=== PATIENT | male | born 1990 | race Caucasian/White ===

== ENCOUNTER 2017-10-16 19:48 | Emergency (ER) | payer SELFPAY ==
--- NOTE | 2017-10-16 20:03 | EDM.PDOC ---
ED HPI GENERAL MEDICAL PROBLEM - General Stated Complaint: RT SIDE TOOTHACHE Time Seen by Provider: 10/16/17 19:54 - History of Present Illness INITIAL COMMENTS - FREE TEXT/NARRATIVE: HISTORY AND PHYSICAL: History of present illness: Patient 26-year-old white male presents with a concern of dental pain he states he had this off and on for last 2 weeks since gotten progressively worse he is working on scheduling dental follow-up Review of systems: As per history of present illness and below otherwise all systems reviewed and negative. Past medical history: As per history of present illness and as reviewed below otherwise noncontributory. Surgical history: As per history of present illness and as reviewed below otherwise noncontributory. Social history: No reported history of drug or alcohol abuse. Family history: As per history of present illness and as reviewed below otherwise noncontributory. Physical exam: HEENT: Atraumatic, normocephalic, pupils reactive, negative for conjunctival pallor or scleral icterus, mucous membranes moist, throat clear, neck supple, nontender, trachea midline. Lungs: Clear to auscultation, breath sounds equal bilaterally, chest nontender. Heart: S1S2, regular, negative for clicks, rubs, or JVD. Abdomen: Soft, nondistended, nontender. Negative for masses or hepatosplenomegaly. Negative for costovertebral tenderness. Pelvis: Stable nontender. Genitourinary: Deferred. Rectal: Deferred. Extremities: Atraumatic, negative for cords or calf pain. Neurovascular unremarkable. Neuro: Awake, alert, oriented. Cranial nerves II through XII unremarkable. Cerebellum unremarkable. Motor and sensory unremarkable throughout. Exam nonfocal. Diagnostics: None Therapeutics: Toradol 60 mg IM hydrocodone 10 mg by mouth Impression: #1 dentalgia rule out dental abscess Definitive disposition and diagnosis as appropriate pending reevaluation and review of above. ED ROS GENERAL - Review of Systems Review Of Systems: ROS reveals no pertinent complaints other than HPI. ED EXAM, GENERAL - Physical Exam Exam: See Below (The dictation) Departure - Departure Time of Disposition: 20:04 Disposition: Home, Self-Care 01 Condition: Good Clinical Impression: Dentalgia - Discharge Information Referrals: PCP,None [Primary Care Provider] - Additional Instructions: The following information is given to patients seen in the emergency department who are being discharged to home. This information is to outline your options for follow-up care. We provide all patients seen in our emergency department with a follow-up referral. The need for follow-up, as well as the timing and circumstances, are variable depending upon the specifics of your emergency department visit. If you don't have a primary care physician on staff, we will provide you with a referral. We always advise you to contact your personal physician following an emergency department visit to inform them of the circumstance of the visit and for follow-up with them and/or the need for any referrals to a consulting specialist. The emergency department will also refer you to a specialist when appropriate. This referral assures that you have the opportunity for followup care with a specialist. All of these measure are taken in an effort to provide you with optimal care, which includes your followup. Under all circumstances we always encourage you to contact your private physician who remains a resource for coordinating your care. When calling for followup care, please make the office aware that this follow-up is from your recent emergency room visit. If for any reason you are refused follow-up, please contact the [facility] emergency department at and asked to speak to the emergency department charge nurse. Penicillin Ultram as prescribed follow-up dentist as discussed return as needed as discussed
[2017-10-16] MEDS ORDERED: Acetaminophen/HYDROcodone 325-10 MG Tab PO ONE (20:16)
[2017-10-16] MEDS ORDERED: Ketorolac 60 MG/2 ML SDV IM ONE (20:16)
== END 2017-10-16 20:49 | disposition home or self-care (01) ==
LOC: MW.ED 19:48
DX: K08.89 Other specified disorders of teeth and supporting structures (principal)
CPT/HCPCS: 96372; 99282; A9270; J1885; 99281

== ENCOUNTER 2017-10-17 10:15 | Emergency (ER) | payer SELFPAY ==
[2017-10-17] MEDS ORDERED: Benzocaine 20% Topical Spray UD MUCMEM ONE (10:44)
[2017-10-17] MEDS ORDERED: Lidocaine 2% Viscous Solution 15 ML Cup PO ONE (10:44)
--- NOTE | 2017-10-17 10:58 | EDM.PDOC ---
ED HPI GENERAL MEDICAL PROBLEM - General Chief Complaint: General Stated Complaint: toothache Time Seen by Provider: 10/17/17 10:28 Source of Information: Reports: Patient History Limitations: Reports: No Limitations - History of Present Illness INITIAL COMMENTS - FREE TEXT/NARRATIVE: HISTORY AND PHYSICAL: History of present illness: []Rob is a 26-year-old male here with complaint of dental pain. He states he has had the pain for the past 36 hours. He was seen in the ED last night and given a Toradol shot and sent home with tramadol and penicillin. She reports that the tramadol is not helping much with the pain. He is not scheduled with a dentist yet. He denies any fevers. Review of systems: As per history of present illness and below otherwise all systems reviewed and negative. Past medical history: As per history of present illness and as reviewed below otherwise noncontributory. Surgical history: As per history of present illness and as reviewed below otherwise noncontributory. Social history: No reported history of drug or alcohol abuse. Family history: As per history of present illness and as reviewed below otherwise noncontributory. Physical exam: HEENT: Erythema noted around teeth #31 and #32. Multiple dental caries. Atraumatic, normocephalic, pupils reactive, negative for conjunctival pallor or scleral icterus, mucous membranes moist, throat clear, neck supple, nontender, trachea midline. Lungs: Clear to auscultation, breath sounds equal bilaterally, chest nontender. Heart: S1S2, regular, negative for clicks, rubs, or JVD. Abdomen: Soft, nondistended, nontender. Negative for masses or hepatosplenomegaly. Negative for costovertebral tenderness. Pelvis: Stable nontender. Genitourinary: Deferred. Rectal: Deferred. Extremities: Atraumatic, negative for cords or calf pain. Neurovascular unremarkable. Neuro: Awake, alert, oriented. Cranial nerves II through XII unremarkable. Cerebellum unremarkable. Motor and sensory unremarkable throughout. Exam nonfocal. Diagnostics: [] Therapeutics: [Dental balls] Impression: [Dental abscess] Plan: [#1 continue using tramadol and dental balls as needed. Continue taking penicillin as prescribed #2 follow-up with your dentist as discussed #3 return to the ED as needed as discussed ] Definitive disposition and diagnosis as appropriate pending reevaluation and review of above. 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: Other (see below) (Penicillin and tramadol) Right Face Pain Score (Numeric/FACES): 9 - Related Data Allergies Allergy/AdvReac Type Severity Reaction Status Date / Time No Known Allergies Allergy Verified 10/17/17 10:28 Home Meds: Home Meds traMADol HCl [Tramadol HCl] 50 mg PO Q4HR PRN 10/17/17 [History] Past Medical History - Past Health History Medical/Surgical History: Denies Medical/Surgical History - Infectious Disease History Infectious Disease History: Reports: Chicken Pox Social & Family History - Family History Family Medical History: Noncontributory - Tobacco Use Smoking Status *Q: Current Every Day Smoker Years of Tobacco use: 13 Packs/Tins Daily: 1 - Caffeine Use Caffeine Use: Reports: Tea - Recreational Drug Use Recreational Drug Use: No ED ROS GENERAL - Review of Systems Review Of Systems: ROS reveals no pertinent complaints other than HPI. ED EXAM, GENERAL - Physical Exam Exam: See Below (See dictation) Course - Vital Signs Last Recorded V/S: Last Vital Signs Temp 36.3 C 10/17/17 10:23 Pulse 70 10/17/17 10:23 Resp 16 10/17/17 10:23 BP 159/82 H 10/17/17 10:23 Pulse Ox 99 10/17/17 10:23 - Orders/Labs/Meds Meds: Medications Discontinued Medications Generic Name Dose Route Start Last Admin Trade Name Abeba PRN Reason Stop Dose Admin Benzocaine 2 each 10/17/17 10:44 10/17/17 10:53 Hurricaine One 20% MUCMEM 10/17/17 10:45 2 each ONETIME ONE Administration Lidocaine HCl 15 ml 10/17/17 10:44 10/17/17 10:53 Xylocaine 2% Viscous PO 10/17/17 10:45 15 ml ONETIME ONE Administration Departure - Departure Time of Disposition: 11:19 Disposition: Home, Self-Care 01 Clinical Impression: Dentalgia, Dental abscess - Discharge Information Instructions: Dental Abscess, [id number] Referrals: PCP,None [Primary Care Provider] - Forms: ED Department Discharge Additional Instructions: The following information is given to patients seen in the emergency department who are being discharged to home. This information is to outline your options for follow-up care. We provide all patients seen in our emergency department with a follow-up referral. The need for follow-up, as well as the timing and circumstances, are variable depending upon the specifics of your emergency department visit. If you don't have a primary care physician on staff, we will provide you with a referral. We always advise you to contact your personal physician following an emergency department visit to inform them of the circumstance of the visit and for follow-up with them and/or the need for any referrals to a consulting specialist. The emergency department will also refer you to a specialist when appropriate. This referral assures that you have the opportunity for follow-up care with a specialist. All of these measure are taken in an effort to provide you with optimal care, which includes your follow-up. Under all circumstances we always encourage you to contact your private physician who remains a resource for coordinating your care. When calling for follow-up care, please make the office aware that this follow-up is from your recent emergency room visit. If for any reason you are refused follow-up, please contact the [facility] Emergency Department at and asked to speak to the emergency department charge nurse. [#1 continue using tramadol and dental balls as needed. Continue taking penicillin as prescribed #2 follow-up with your dentist as discussed #3 return to the ED as needed as discussed ]
== END 2017-10-17 11:22 | disposition home or self-care (01) ==
LOC: MW.ED 10:15
DX: K04.7 Periapical abscess without sinus (principal); F17.210 Nicotine dependence, cigarettes, uncomplicated
CPT/HCPCS: 99282; A9270

== ENCOUNTER 2017-10-19 10:11 | Emergency (ER) | payer SELFPAY ==
[2017-10-19] MEDS ORDERED: Lidocaine 2% Viscous Solution 15 ML Cup PO ONE ×2 (11:36→11:50)
[2017-10-19] MEDS ORDERED: Benzocaine 20% Topical Spray UD MUCMEM ONE ×2 (11:36→11:50)
--- NOTE | 2017-10-19 11:49 | EDM.PDOC ---
ED HPI GENERAL MEDICAL PROBLEM - General Chief Complaint: ENT Problem Stated Complaint: PT WOULD LIKE TO BE SEEN FOR HIS Rx Time Seen by Provider: 10/19/17 11:30 Source of Information: Reports: Patient History Limitations: Reports: No Limitations - History of Present Illness INITIAL COMMENTS - FREE TEXT/NARRATIVE: HISTORY AND PHYSICAL: History of present illness: She comes to the emergency room requesting a refill of dental balls and tramadol. He was seen in the emergency room on October 16 and for dental pain and Was prescribed amoxicillin, tramadol and dental balls. Overall his pain is improved significantly but he is running out of tramadol and dental balls. He has 4 tablets of tramadol left. He requests a refill of both. He is scheduled to see a dentist on ThursdayOctober 23 but doesn't feel that he can wait that long without medications. He has no other concerns or complaints at this time. Review of systems: As per history of present illness and below otherwise all systems reviewed and negative. Past medical history: As per history of present illness and as reviewed below otherwise noncontributory. Surgical history: As per history of present illness and as reviewed below otherwise noncontributory. Social history: No reported history of drug or alcohol abuse. Family history: As per history of present illness and as reviewed below otherwise noncontributory. Physical exam: Gen. well-developed well-nourished male in no acute distress. HEENT: Atraumatic, normocephalic. Tooth #31 shows cavities and decay. No gum swelling or erythema. No facial swelling noted. Tender with palpation over the tooth. Mucous membranes are pink and moist, throat clear. Lungs: Clear to auscultation, breath sounds equal bilaterally, chest nontender. Heart: S1S2, regular, negative for clicks, rubs, or JVD. Abdomen: Soft, nondistended, nontender. Negative for masses or hepatosplenomegaly. Negative for costovertebral tenderness. Pelvis: Stable nontender. Genitourinary: Deferred. Rectal: Deferred. Extremities: Atraumatic. Neurovascular unremarkable. Neuro: Awake, alert, oriented. Motor and sensory unremarkable throughout. Exam nonfocal. Therapeutics: [Dental balls] Impression: [Dental pain] Plan: [Rx written for tramadol 50 mg #20 sig one by mouth every 6 hours as needed for pain, dental balls 2 are given to patient. Urged follow-up with local dentist as he is scheduled. We reviewed that no more refills of tramadol will be provided to the ER. He is in agreement with today's plan.] Definitive disposition and diagnosis as appropriate pending reevaluation and review of above. - Related Data Allergies Allergy/AdvReac Type Severity Reaction Status Date / Time No Known Allergies Allergy Verified 10/19/17 10:31 Home Meds: Home Meds traMADol HCl [Tramadol HCl] 50 mg PO Q4HR PRN 10/17/17 [History] Penicilin G Potassium/D5W [Pfizerpen in D5W] 1 cap PO DAILY 10/19/17 [History] Past Medical History - Past Health History Medical/Surgical History: Denies Medical/Surgical History - Infectious Disease History Infectious Disease History: Reports: Chicken Pox Social & Family History - Family History Family Medical History: Noncontributory - Tobacco Use Smoking Status *Q: Current Every Day Smoker Years of Tobacco use: 13 Packs/Tins Daily: 1 - Caffeine Use Caffeine Use: Reports: Coffee, Tea - Recreational Drug Use Recreational Drug Use: No ED ROS ENT - Review of Systems Review Of Systems: ROS reveals no pertinent complaints other than HPI. ED EXAM, ENT - Physical Exam Exam: See Below Course - Vital Signs Last Recorded V/S: Last Vital Signs Temp 98.7 F 10/19/17 10:32 Pulse 82 10/19/17 10:32 Resp 18 10/19/17 10:32 BP 131/80 10/19/17 10:32 Pulse Ox 98 10/19/17 10:32 - Orders/Labs/Meds Meds: Medications Discontinued Medications Generic Name Dose Route Start Last Admin Trade Name Abeba PRN Reason Stop Dose Admin Benzocaine 2 each 10/19/17 11:36 Hurricaine One 20% MUCMEM 10/19/17 11:37 ONETIME ONE Lidocaine HCl 15 ml 10/19/17 11:36 Xylocaine 2% Viscous PO 10/19/17 11:37 ONETIME ONE Departure - Departure Time of Disposition: 11:50 Disposition: Home, Self-Care 01 Condition: Good Clinical Impression: Pain, dental - Discharge Information Referrals: PCP,None [Primary Care Provider] - Additional Instructions: The following information is given to patients seen in the emergency department who are being discharged to home. This information is to outline your options for follow-up care. We provide all patients seen in our emergency department with a follow-up referral. The need for follow-up, as well as the timing and circumstances, are variable depending upon the specifics of your emergency department visit. If you don't have a primary care physician on staff, we will provide you with a referral. We always advise you to contact your personal physician following an emergency department visit to inform them of the circumstance of the visit and for follow-up with them and/or the need for any referrals to a consulting specialist. The emergency department will also refer you to a specialist when appropriate. This referral assures that you have the opportunity for follow-up care with a specialist. All of these measure are taken in an effort to provide you with optimal care, which includes your follow-up. Under all circumstances we always encourage you to contact your private physician who remains a resource for coordinating your care. When calling for follow-up care, please make the office aware that this follow-up is from your recent emergency room visit. If for any reason you are refused follow-up, please contact the [facility] emergency department at and asked to speak to the emergency department charge nurse. [facility] [address] [place] [id number] Follow-up with her local primary care provider at the clinic listed above in 48- 72 hours. Take medications as prescribedDo not miss your dental appointment on Thursday. Return to ER as needed as discussed..
== END 2017-10-19 12:05 | disposition home or self-care (01) ==
LOC: MW.ED 10:11
DX: K08.89 Other specified disorders of teeth and supporting structures (principal); F17.210 Nicotine dependence, cigarettes, uncomplicated
CPT/HCPCS: 99282; A9270

== ENCOUNTER 2018-01-11 12:21 | Emergency (ER) | payer SELFPAY ==
[2018-01-11] MEDS ORDERED: Lidocaine 2% Viscous Solution 15 ML Cup PO ONE (12:33)
[2018-01-11] MEDS ORDERED: Benzocaine 20% Topical Spray UD MUCMEM ONE (12:33)
--- NOTE | 2018-01-11 12:36 | EDM.PDOC ---
ED HPI GENERAL MEDICAL PROBLEM - General Stated Complaint: TOOTH HURTS Time Seen by Provider: 01/11/18 12:35 Source of Information: Reports: Patient History Limitations: Reports: No Limitations - History of Present Illness INITIAL COMMENTS - FREE TEXT/NARRATIVE: HISTORY AND PHYSICAL: History of present illness: Patient is a 27-year-old male who presents to the emergency room today with complaints of dental pain. He has had a long-standing history of dentalgia over the past 4 months and has been seen in our emergency room 3 separate times for pain management and antibiotic use. He states he did see a dentist as a follow- up to his last visit; informed he would have to pay $2000 up front for a root canal. He does not have an appointment scheduled at this time and is requesting a refill on his tramadol and penicillin. He denies any fever, chills, chest pain, shortness of breath or cough. Denies any abdominal pain, nausea, vomiting, diarrhea or constipation. Review of systems: As per history of present illness and below otherwise all systems reviewed and negative. Past medical history: As per history of present illness and as reviewed below otherwise noncontributory. Surgical history: As per history of present illness and as reviewed below otherwise noncontributory. Social history: No reported history of drug or alcohol abuse. Family history: As per history of present illness and as reviewed below otherwise noncontributory. Physical exam: General: Well-developed and well-nourished 27-year-old male. Alert and oriented. Nontoxic appearing and in no acute distress. HEENT: Atraumatic, normocephalic, pupils equal and reactive bilaterally, negative for conjunctival pallor or scleral icterus, mucous membranes moist, poor dental health noted with decay. No erythema, drainage or soft tissue swelling noted. His throat is clear, TM normal bilateral, neck supple, nontender , trachea midline. No drooling or trismus noted. No meningeal signs Lungs: Clear to auscultation, breath sounds equal bilaterally, chest nontender. Heart: S1S2, regular rate and rhythm without overt murmur Abdomen: Soft, nondistended, nontender. Negative for masses or hepatosplenomegaly. Negative for costovertebral tenderness. Pelvis: Stable nontender. Genitourinary: Deferred. Rectal: Deferred. Skin: Intact, warm, dry. No lesions or rashes noted. Extremities: Atraumatic, negative for cords or calf pain. Neurovascular unremarkable. Neuro: Awake, alert, oriented. Cranial nerves II through XII unremarkable. Cerebellum unremarkable. Motor and sensory unremarkable throughout. Exam nonfocal. Notes: Did thoroughly review with patient the importance of follow-up with the dentist for definitive care. At this time I will not refill his tramadol. We'll give him topical dental balls, diclofenac, and Pen-VK. He is agreeable to plan of care. He denies any further questions at this time. Diagnostics: [] Therapeutics: Viscous Lidocane/hurricane spray Impression: Dentalgia Plan: 1. Please take your medications as prescribed. 2. As we discussed please follow-up with the dentist for definitive care. Return to the ED as needed and as discussed. Definitive disposition and diagnosis as appropriate pending reevaluation and review of above. Oral/Mouth Pain Score (Numeric/FACES): 7 - Related Data Allergies Allergy/AdvReac Type Severity Reaction Status Date / Time No Known Allergies Allergy Verified 01/11/18 12:28 Home Meds: Home Meds . [No Known Home Meds] 01/11/18 [History] Past Medical History - Past Health History Medical/Surgical History: Denies Medical/Surgical History - Infectious Disease History Infectious Disease History: Reports: Chicken Pox Social & Family History - Family History Family Medical History: Noncontributory - Caffeine Use Caffeine Use: Reports: Coffee, Tea ED ROS ENT - Review of Systems Review Of Systems: ROS reveals no pertinent complaints other than HPI. ED EXAM, ENT - Physical Exam Exam: See Below (See dictation) Course - Vital Signs Last Recorded V/S: Last Vital Signs Temp 97.5 F 01/11/18 12:33 Pulse 74 01/11/18 12:33 Resp 16 01/11/18 12:33 BP 147/89 H 01/11/18 12:33 Pulse Ox 96 01/11/18 12:33 - Orders/Labs/Meds Meds: Medications Discontinued Medications Generic Name Dose Route Start Last Admin Trade Name Freq PRN Reason Stop Dose Admin Benzocaine 2 each 01/11/18 12:33 Hurricaine One 20% MUCMEM 01/11/18 12:34 ONETIME ONE Lidocaine HCl 15 ml 01/11/18 12:33 Xylocaine 2% Viscous PO 01/11/18 12:34 ONETIME ONE Departure - Departure Time of Disposition: 12:39 Disposition: Home, Self-Care 01 Clinical Impression: Dentalgia - Discharge Information Referrals: PCP,None [Primary Care Provider] - Additional Instructions: The following information is given to patients seen in the emergency department who are being discharged to home. This information is to outline your options for follow-up care. We provide all patients seen in our emergency department with a follow-up referral. The need for follow-up, as well as the timing and circumstances, are variable depending upon the specifics of your emergency department visit. If you don't have a primary care physician on staff, we will provide you with a referral. We always advise you to contact your personal physician following an emergency department visit to inform them of the circumstance of the visit and for follow-up with them and/or the need for any referrals to a consulting specialist. The emergency department will also refer you to a specialist when appropriate. This referral assures that you have the opportunity for follow-up care with a specialist. All of these measure are taken in an effort to provide you with optimal care, which includes your follow-up. Under all circumstances we always encourage you to contact your private physician who remains a resource for coordinating your care. When calling for follow-up care, please make the office aware that this follow-up is from your recent emergency room visit. If for any reason you are refused follow-up, please contact the [facility] Emergency Department at and asked to speak to the emergency department charge nurse. [facility] [address] [place] [id number] 1. Please take your medications as prescribed. 2. As we discussed please follow-up with the dentist for definitive care. Return to the ED as needed and as discussed.
== END 2018-01-11 13:00 | disposition home or self-care (01) ==
LOC: MW.ED 12:21
DX: K08.89 Other specified disorders of teeth and supporting structures (principal)
CPT/HCPCS: 99282; A9270

== ENCOUNTER 2018-01-13 05:27 | Emergency (ER) | payer SELFPAY ==
[2018-01-13] MEDS ORDERED: Benzocaine 20% Topical Spray UD MUCMEM ONE (05:51)
[2018-01-13] MEDS ORDERED: Lidocaine 2% Viscous Solution 15 ML Cup PO ONE (05:51)
--- NOTE | 2018-01-13 05:56 | EDM.PDOC ---
ED HPI GENERAL MEDICAL PROBLEM - General Chief Complaint: General Stated Complaint: TOOTH PAIN Time Seen by Provider: 01/13/18 05:46 - History of Present Illness INITIAL COMMENTS - FREE TEXT/NARRATIVE: HISTORY AND PHYSICAL: History of present illness: The patient is a 27-year-old male who has been seen here several times in the past few months for dental pain and was here 2 days ago for same and says he is still having pain on the right lower molar area. The patient said he did see a dentist and that the dentist would like to not pull the tooth but do a root canal which is going to cause several thousand dollars and he needs to save the money for that and is scheduled tentatively for a month and a half from now. 2 days ago the patient received Pen-Vee K dental balls and diclofenac and nothing stronger and he says that he is out of the dental balls in the diclofenac is not working. In the past he has used tramadol. He has no fevers chills or throat pain with swallowing and only minimal facial swelling. He says the pain is now going to his ear. Patient has no other systemic complaints Review of systems: As per history of present illness and below otherwise all systems reviewed and negative. Past medical history: As per history of present illness and as reviewed below otherwise noncontributory. Surgical history: As per history of present illness and as reviewed below otherwise noncontributory. Social history: No reported history of drug or alcohol abuse. Family history: As per history of present illness and as reviewed below otherwise noncontributory. Physical exam: General: Well-developed well-nourished man who is nontoxic and vital signs are noted by me HEENT: Atraumatic, normocephalic, pupils reactive, negative for conjunctival pallor or scleral icterus, mucous membranes moist, throat clear, neck supple, nontender, trachea midline. There is some shoddy anterior cervical adenopathy but no nuchal rigidity. There are several areas of dental disease more on the left side and at the right lower molar area the patient is indicating as his site of pain and there is no gum swelling no overt dental Caries but tenderness with palpation. Lungs: Clear to auscultation, breath sounds equal bilaterally, chest nontender. Heart: S1S2, regular in rhythm no overt murmurs Abdomen: Soft, nondistended, nontender. NABS Pelvis: Deferred Genitourinary: Deferred. Rectal: Deferred. Extremities: Atraumatic, full range of motion without defects or deficits. Neurovascular unremarkable. Neuro: Awake, alert, oriented. Cranial nerves II through XII unremarkable. Cerebellum unremarkable. Motor and sensory unremarkable throughout. Exam nonfocal. Diagnostics: [] Therapeutics: Dental balls Impression: Dental pain Definitive disposition and diagnosis as appropriate pending reevaluation and review of above. Right Upper Oral/Mouth Pain Score (Numeric/FACES): 8 - Related Data Allergies Allergy/AdvReac Type Severity Reaction Status Date / Time No Known Allergies Allergy Verified 01/13/18 05:39 Home Meds: Home Meds Penicillin V Potassium 500 mg PO TID 01/13/18 [History] Past Medical History - Past Health History Medical/Surgical History: Denies Medical/Surgical History HEENT History: Reports: None Cardiovascular History: Reports: None Respiratory History: Reports: None Gastrointestinal History: Reports: None Genitourinary History: Reports: None Musculoskeletal History: Reports: None Neurological History: Reports: None Psychiatric History: Reports: None Endocrine/Metabolic History: Reports: None Hematologic History: Reports: None Immunologic History: Reports: None Oncologic (Cancer) History: Reports: None Dermatologic History: Reports: None - Infectious Disease History Infectious Disease History: Reports: None - Past Surgical History Head Surgeries/Procedures: Reports: None Male Surgical History: Reports: None Social & Family History - Family History Family Medical History: Noncontributory - Tobacco Use Smoking Status *Q: Current Every Day Smoker Years of Tobacco use: 14 Packs/Tins Daily: 3 - Caffeine Use Caffeine Use: Reports: None - Recreational Drug Use Recreational Drug Use: No ED ROS GENERAL - Review of Systems Review Of Systems: ROS reveals no pertinent complaints other than HPI. ED EXAM, GENERAL - Physical Exam Exam: See Below (See dictation) Course - Vital Signs Last Recorded V/S: Last Vital Signs Temp 35.8 C 01/13/18 05:37 Pulse 65 01/13/18 05:37 Resp 18 01/13/18 05:37 BP 143/95 H 01/13/18 05:37 Pulse Ox 98 01/13/18 05:37 - Orders/Labs/Meds Orders: Active Orders 24 hr Category Date Time Status Benzocaine [Hurricaine One 20%] Med 01/13/18 05:51 Once 2 each MUCMEM ONETIME ONE Lidocaine 2% [Xylocaine 2% Viscous] Med 01/13/18 05:51 Once 15 ml PO ONETIME ONE Medication Orders Benzocaine (Hurricaine One 20%) 2 each MUCMEM ONETIME ONE Stop: 01/13/18 05:52 Lidocaine HCl (Xylocaine 2% Viscous) 15 ml PO ONETIME ONE Stop: 01/13/18 05:52 Meds: Medications Generic Name Dose Route Start Last Admin Trade Name Abeba PRN Reason Stop Dose Admin Benzocaine 2 each 01/13/18 05:51 Hurricaine One 20% MUCMEM 01/13/18 05:52 ONETIME ONE Lidocaine HCl 15 ml 01/13/18 05:51 Xylocaine 2% Viscous PO 01/13/18 05:52 ONETIME ONE Departure - Departure Time of Disposition: 05:56 Disposition: Home, Self-Care 01 Condition: Good Clinical Impression: Pain, dental - Discharge Information Referrals: PCP,None [Primary Care Provider] - Additional Instructions: The following information is given to patients seen in the emergency department who are being discharged to home. This information is to outline your options for follow-up care. We provide all patients seen in our emergency department with a follow-up referral. The need for follow-up, as well as the timing and circumstances, are variable depending upon the specifics of your emergency department visit. If you don't have a primary care physician on staff, we will provide you with a referral. We always advise you to contact your personal physician following an emergency department visit to inform them of the circumstance of the visit and for follow-up with them and/or the need for any referrals to a consulting specialist. The emergency department will also refer you to a specialist when appropriate. This referral assures that you have the opportunity for followup care with a specialist. All of these measure are taken in an effort to provide you with optimal care, which includes your followup. Under all circumstances we always encourage you to contact your private physician who remains a resource for coordinating your care. When calling for followup care, please make the office aware that this follow-up is from your recent emergency room visit. If for any reason you are refused follow-up, please contact the [facility] emergency department at and ask to speak to the emergency department charge nurse. [facility] Primary care- Internal [place] [address] Use ice to face for swelling and use the dental balls you have been given today as directed and needed. Continue to use her diclofenac and [id number] Tylenol during the day and only take the tramadol you have been given at nighttime or when you're at home. Do not take and drive a car or operate machinery. Please make sure to schedule your follow-up appointment with the dentist for definitive care and treatment. Return to ER as needed and as discussed - My Orders Last 24 Hours: My Active Orders 01/13/18 05:51 Benzocaine [Hurricaine One 20%] 2 each MUCMEM ONETIME ONE Lidocaine 2% [Xylocaine 2% Viscous] 15 ml PO ONETIME ONE - Assessment/Plan Last 24 Hours: My Active Orders 01/13/18 05:51 Benzocaine [Hurricaine One 20%] 2 each MUCMEM ONETIME ONE Lidocaine 2% [Xylocaine 2% Viscous] 15 ml PO ONETIME ONE
== END 2018-01-13 06:10 | disposition home or self-care (01) ==
LOC: MW.ED 05:27
DX: K08.89 Other specified disorders of teeth and supporting structures (principal); F17.210 Nicotine dependence, cigarettes, uncomplicated
CPT/HCPCS: 99282; A9270

== ENCOUNTER 2018-03-24 04:16 | Emergency (ER) | payer SELFPAY ==
[2018-03-24] MEDS ORDERED: Benzocaine 20% Topical Spray UD MUCMEM ONE (05:23)
[2018-03-24] MEDS ORDERED: Lidocaine 2% Jelly 30 ML Tube MUCMEM ONE (05:26)
[2018-03-24] MEDS ORDERED: Lidocaine 2% Viscous Solution 15 ML Cup PO ONE (05:27)
[2018-03-24] MEDS ORDERED: Lidocaine 2% Jelly 30 ML Tube MUCMEM SCH (05:30)
--- NOTE | 2018-03-24 05:30 | EDM.PDOC ---
ED HPI GENERAL MEDICAL PROBLEM - General Chief Complaint: ENT Problem Stated Complaint: TOOTH PAIN Time Seen by Provider: 03/24/18 05:24 - History of Present Illness INITIAL COMMENTS - FREE TEXT/NARRATIVE: HISTORY AND PHYSICAL: History of present illness: Patient's 27-year-old male presents with a concern of dentalgia this is his seventh visit to the ER this year for dental pain he states is currently on antibiotics and is scheduled for root canal but no fever chills nausea vomiting or other complaints Review of systems: As per history of present illness and below otherwise all systems reviewed and negative. Past medical history: As per history of present illness and as reviewed below otherwise noncontributory. Surgical history: As per history of present illness and as reviewed below otherwise noncontributory. Social history: No reported history of drug or alcohol abuse. Family history: As per history of present illness and as reviewed below otherwise noncontributory. Physical exam: HEENT: Atraumatic, normocephalic, pupils reactive, negative for conjunctival pallor or scleral icterus, mucous membranes moist, throat clear, neck supple, nontender, trachea midline. No facial swelling noted some mild gingival edema in the region of the right upper molar Lungs: Clear to auscultation, breath sounds equal bilaterally, chest nontender. Heart: S1S2, regular, negative for clicks, rubs, or JVD. Abdomen: Soft, nondistended, nontender. Negative for masses or hepatosplenomegaly. Negative for costovertebral tenderness. Pelvis: Stable nontender. Genitourinary: Deferred. Rectal: Deferred. Extremities: Atraumatic, negative for cords or calf pain. Neurovascular unremarkable. Neuro: Awake, alert, oriented. Cranial nerves II through XII unremarkable. Cerebellum unremarkable. Motor and sensory unremarkable throughout. Exam nonfocal. Diagnostics: None Therapeutics: Dental balls Impression: #1 dentalgia Definitive disposition and diagnosis as appropriate pending reevaluation and review of above. dental pain Pain Score (Numeric/FACES): 8 - Related Data Allergies Allergy/AdvReac Type Severity Reaction Status Date / Time No Known Allergies Allergy Verified 03/24/18 04:23 Home Meds: Home Meds Cephalexin [Keflex] 500 mg PO Q6HR 03/24/18 [History] Past Medical History - Past Health History Medical/Surgical History: Denies Medical/Surgical History HEENT History: Reports: None Cardiovascular History: Reports: None Respiratory History: Reports: None Gastrointestinal History: Reports: None Genitourinary History: Reports: None Musculoskeletal History: Reports: None Neurological History: Reports: None Psychiatric History: Reports: None Endocrine/Metabolic History: Reports: None Hematologic History: Reports: None Immunologic History: Reports: None Oncologic (Cancer) History: Reports: None Dermatologic History: Reports: None - Infectious Disease History Infectious Disease History: Reports: None - Past Surgical History Head Surgeries/Procedures: Reports: None Male Surgical History: Reports: None Social & Family History - Family History Family Medical History: Noncontributory - Tobacco Use Smoking Status *Q: Current Every Day Smoker Years of Tobacco use: 13 Packs/Tins Daily: 2 - Caffeine Use Caffeine Use: Reports: Soda - Recreational Drug Use Recreational Drug Use: No ED ROS GENERAL - Review of Systems Review Of Systems: ROS reveals no pertinent complaints other than HPI. ED EXAM, GENERAL - Physical Exam Exam: See Below (See dictation) Course - Vital Signs Text/Narrative:: I discussed with patient the limitations in emergency department for dental pain and his 7 visits inclusive of this one and the need for a more close relationship with her dentist to better manage his general dental care and pain resulting in such frequent ER visits Last Recorded V/S: Last Vital Signs Temp 36.4 C 03/24/18 04:25 Pulse 77 03/24/18 04:25 Resp 18 03/24/18 04:25 BP 132/93 H 03/24/18 04:25 Pulse Ox 98 03/24/18 04:25 - Orders/Labs/Meds Orders: Active Orders 24 hr Category Date Time Status Lidocaine 2% [Xylocaine 2% Jelly] Med 03/24/18 05:30 Active 15 ml MUCMEM STAT Medication Orders Lidocaine HCl (Xylocaine 2% Jelly) 15 ml MUCMEM STAT RISHABH Meds: Medications Generic Name Dose Route Start Last Admin Trade Name Freq PRN Reason Stop Dose Admin Lidocaine HCl 15 ml 03/24/18 05:30 Xylocaine 2% Jelly MUCMEM STAT RISHABH Discontinued Medications Generic Name Dose Route Start Last Admin Trade Name Freq PRN Reason Stop Dose Admin Benzocaine 2 each 03/24/18 05:23 Hurricaine One 20% MUCMEM 03/24/18 05:24 ONETIME ONE Departure - Departure Time of Disposition: 05:29 Disposition: Home, Self-Care 01 Condition: Good Clinical Impression: Dentalgia - Discharge Information *PRESCRIPTION DRUG MONITORING PROGRAM REVIEWED*: Not Applicable *COPY OF PRESCRIPTION DRUG MONITORING REPORT IN PATIENT DARLEEN: Not Applicable Referrals: PCP,None [Primary Care Provider] - Additional Instructions: The following information is given to patients seen in the emergency department who are being discharged to home. This information is to outline your options for follow-up care. We provide all patients seen in our emergency department with a follow-up referral. The need for follow-up, as well as the timing and circumstances, are variable depending upon the specifics of your emergency department visit. If you don't have a primary care physician on staff, we will provide you with a referral. We always advise you to contact your personal physician following an emergency department visit to inform them of the circumstance of the visit and for follow-up with them and/or the need for any referrals to a consulting specialist. The emergency department will also refer you to a specialist when appropriate. This referral assures that you have the opportunity for followup care with a specialist. All of these measure are taken in an effort to provide you with optimal care, which includes your followup. Under all circumstances we always encourage you to contact your private physician who remains a resource for coordinating your care. When calling for followup care, please make the office aware that this follow-up is from your recent emergency room visit. If for any reason you are refused follow-up, please contact the [facility] emergency department at and asked to speak to the emergency department charge nurse. Follow-up dentist continue antibiotics dental balls as directed return as needed as discussed - My Orders Last 24 Hours: My Active Orders 03/24/18 05:30 Lidocaine 2% [Xylocaine 2% Jelly] 15 ml MUCMEM STAT - Assessment/Plan Last 24 Hours: My Active Orders 03/24/18 05:30 Lidocaine 2% [Xylocaine 2% Jelly] 15 ml MUCMEM STAT
[2018-03-24] MEDS ORDERED: Lidocaine 2% Viscous Solution 15 ML Cup ONE (05:31)
== END 2018-03-24 05:45 | disposition home or self-care (01) ==
LOC: MW.ED 04:16
DX: K08.89 Other specified disorders of teeth and supporting structures (principal); F17.210 Nicotine dependence, cigarettes, uncomplicated
CPT/HCPCS: 99282; A9270

== ENCOUNTER 2020-11-06 22:27 | Emergency (ER) | payer BC ==
[2020-11-06] MEDS ORDERED: Sodium Chloride 0.9% 10 ML Syringe FLUSH PRN (22:45)
[2020-11-06] MEDS ORDERED: Sodium Chloride 0.9% 2.5 ML Syringe FLUSH PRN (22:45)
--- NOTE | 2020-11-06 22:49 | EDM.PDOC ---
ED HPI GENERAL MEDICAL PROBLEM - General Chief Complaint: Behavioral/Psych Stated Complaint: SUCIDAL IDEATION Time Seen by Provider: 11/06/20 22:45 - History of Present Illness INITIAL COMMENTS - FREE TEXT/NARRATIVE: History of present illness: [] The patient claims he suffers chronic depression. He is never had a suicide attempt. Tonight at 10:00 he took 20 each of Klonopin sertraline and Adderall. He is evasive when asked if he wanted to kill himself. He said someone else called 911 because uncertain that he might . He is at least agreeable to the fact that he does not seem to care. Review of systems: As per history of present illness and below otherwise all systems reviewed and negative. Past medical history: As per history of present illness and as reviewed below otherwise noncontributory. Surgical history: As per history of present illness and as reviewed below otherwise noncontributory. Social history: No reported history of drug or alcohol abuse. Family history: As per history of present illness and as reviewed below otherwise noncontributory. Physical exam: Constitutional - well developed, well-nourished and in no acute distress HEENT - normocephalic, no evidence of trauma - external nose and mouth normal - no mass in neck and no JVD - mucosae moist EYES - full EOM, PERRL, no icterus - no evidence of inflammation, injection, or drainage Respiratory - no respiratory distress, equal bilateral expansion, lungs clear to auscultation and no abnormal lung sounds Cardiovascular - Regular Rhythm with S1 and S2 appreciated and no murmur, gallop or rub. GI - abdomen soft without distension or organomegaly - normal bowel sounds - no guard or rebound Musculoskeletal no gross deformity of long bones or joints - no tenderness, swelling or edema Neurologic - Alert and oriented times four - CN II-XII grossly intact - motor sensory and coordination symmetrically normal Psychiatric -depressed mood and affect with normal thought content Hematologic - No petechiae or purpura - mucosa appropriate color and sclera not pale - normal nail bed color and refill Integument - no rash or evidence of trauma - normal turgor Diagnostics: [] Therapeutics: [] Impression: [] Plan: [] We contacted poison control and got this recommendation: Watch for seizures with sertraline, hypertension, restart rate. The diazepam would counteract the same effects but may cause excessive sedation. Plan to watch 8 hours repeat EKG. Definitive disposition and diagnosis as appropriate pending reevaluation and review of above. - Related Data Allergies Allergy/AdvReac Type Severity Reaction Status Date / Time No Known Allergies Allergy Verified 11/06/20 22:44 Home Meds: Home Meds Amphetamine/Dextroamphetamine [Adderall XR] 30 mg PO DAILY 11/06/20 [History] Sertraline HCl 50 mg PO DAILY 11/06/20 [History] clonazePAM [Clonazepam] 0.5 mg PO DAILY 11/06/20 [History] Past Medical History - Past Health History Medical/Surgical History: Denies Medical/Surgical History HEENT History: Reports: None Cardiovascular History: Reports: None Respiratory History: Reports: None Gastrointestinal History: Reports: None Genitourinary History: Reports: None Musculoskeletal History: Reports: None Neurological History: Reports: None Psychiatric History: Reports: None Endocrine/Metabolic History: Reports: None Hematologic History: Reports: None Immunologic History: Reports: None Oncologic (Cancer) History: Reports: None Dermatologic History: Reports: None - Infectious Disease History Infectious Disease History: Reports: None - Past Surgical History Head Surgeries/Procedures: Reports: None Male Surgical History: Reports: None Social & Family History - Family History Family Medical History: No Pertinent Family History - Caffeine Use Caffeine Use: Reports: Soda ED ROS GENERAL - Review of Systems Review Of Systems: Comprehensive ROS is negative, except as noted in HPI. ED EXAM, GENERAL - Physical Exam Exam: See Below Free Text/Narrative:: My physical exam is in the HPI #1 Interpretation EKG Interpretation Comments: KG at 11:12 PM sinus rhythm with a heart rate 85 axis of 57 and QT 39. Normal QRS normal ST and T. No prior for comparison. Impression normal #2 Interpretation EKG Interpretation Comments: EG 5:45 AM sinus rhythm heart rate 92 [place] 46 QRS duration 94 compared to 11:12 PM on 11/08/2020 no significant difference impression no change in rhythm or both. Course - Vital Signs Text/Narrative:: Oh 2:40 AM at midnight 1:00 2:00 and now the patient has been conversational and in no acute distress. His condition is stable. 5:01 AM patient stable wide-awake and anxious. He says he is a little nervous h e might lose control of himself because of frustration. He does not think he will but he also wants a cigarette. Patient accepted intravenous benzodiazepines and nicotine patches and alternative At 6 AM I discussed the case with Cristina Guy and they do not have a psych bed. I transferred the patient after discussion with Dr. Velasquez at [facility].. I transferred the patient to Dr. Velasquez after discussion with same. She is a psychiatrist at [facility]. Last Recorded V/S: Last Vital Signs Temp 36.9 C 11/07/20 12:50 Pulse 107 H 11/07/20 12:50 Resp 20 11/07/20 12:50 BP 139/83 11/07/20 12:50 Pulse Ox 97 11/07/20 12:50 - Orders/Labs/Meds Orders: Active Orders 24 hr Category Date Time Status Saline Lock Insert [OM.PC] Stat Oth 11/06/20 22:45 Ordered Labs: Laboratory Tests 11/06/20 11/06/20 11/06/20 Range/Units 23:00 23:00 23:00 WBC 10.76 (4.0-11.0) K/uL RBC 5.75 (4.50-5.90) M/uL Hgb 16.4 (13.0-17.0) g/dL Hct 49.1 (38.0-50.0) % MCV 85.4 (80.0-98.0) fL MCH 28.5 (27.0-32.0) pg MCHC 33.4 (31.0-37.0) g/dL RDW Std Deviation 46.9 (28.0-62.0) fl RDW Coeff of Myesha 15 (11.0-15.0) % Plt Count 238 (150-400) K/uL MPV 10.60 (7.40-12.00) fL Neut % (Auto) 52.4 (48.0-80.0) % Lymph % (Auto) 35.1 (16.0-40.0) % Lawrence % (Auto) 8.2 (0.0-15.0) % Eos % (Auto) 3.6 (0.0-7.0) % Baso % (Auto) 0.7 (0.0-1.5) % Neut # (Auto) 5.6 (1.4-5.7) K/uL Lymph # (Auto) 3.8 H (0.6-2.4) K/uL Lawrence # (Auto) 0.9 H (0.0-0.8) K/uL Eos # (Auto) 0.4 (0.0-0.7) K/uL Baso # (Auto) 0.1 (0.0-0.1) K/uL Nucleated RBC % 0.0 /100WBC Nucleated RBCs # 0 K/uL Sodium 142 (136-148) mmol/L Potassium 3.6 (3.5-5.1) mmol/L Chloride 101 (98-107) mmol/L Carbon Dioxide 30.1 (21.0-32.0) mmol/L BUN 7 (7.0-18.0) mg/dL Creatinine 1.1 (0.8-1.3) mg/dL Est Cr Clr Drug Dosing 119.46 mL/min Estimated GFR (MDRD) > 60.0 ml/min Glucose 78 (74-106) mg/dL POC Glucose (70-99) mg/dL Calcium 8.9 (8.5-10.1) mg/dL Magnesium (1.8-2.4) mg/dL Total Bilirubin 0.3 (0.2-1.0) mg/dL AST 24 (15-37) IU/L ALT 35 (14-63) IU/L Alkaline Phosphatase 98 (46-116) U/L Total Protein 8.3 H (6.4-8.2) g/dL Albumin 4.2 (3.4-5.0) g/dL Globulin 4.1 H (2.6-4.0) g/dL Albumin/Globulin Ratio 1.0 (0.9-1.6) Salicylates 3.9 (0-20) mg/dL Urine Opiates Screen (NEGATIVE) Ur Oxycodone Screen (NEGATIVE) Urine Methadone Screen (NEGATIVE) Acetaminophen <2.0 ug/mL Ur Barbiturates Screen (NEGATIVE) Ur Phencyclidine Scrn (NEGATIVE) Ur Amphetamine Screen (NEGATIVE) U Methamphetamines Scrn (NEGATIVE) U Benzodiazepines Scrn (NEGATIVE) U Cocaine Metab Screen (NEGATIVE) U Marijuana (THC) Screen (NEGATIVE) Ethyl Alcohol 186 mg/dL SARS-CoV-2 RNA (GARRICK) (NEGATIVE) 11/06/20 11/06/2021 Range/Units 23:00 23:05 00:20 WBC (4.0-11.0) K/uL RBC (4.50-5.90) M/uL Hgb (13.0-17.0) g/dL Hct (38.0-50.0) % MCV (80.0-98.0) fL MCH (27.0-32.0) pg MCHC (31.0-37.0) g/dL RDW Std Deviation (28.0-62.0) fl RDW Coeff of Myesha (11.0-15.0) % Plt Count (150-400) K/uL MPV (7.40-12.00) fL Neut % (Auto) (48.0-80.0) % Lymph % (Auto) (16.0-40.0) % Lawrence % (Auto) (0.0-15.0) % Eos % (Auto) (0.0-7.0) % Baso % (Auto) (0.0-1.5) % Neut # (Auto) (1.4-5.7) K/uL Lymph # (Auto) (0.6-2.4) K/uL Lawrence # (Auto) (0.0-0.8) K/uL Eos # (Auto) (0.0-0.7) K/uL Baso # (Auto) (0.0-0.1) K/uL Nucleated RBC % /100WBC Nucleated RBCs # K/uL Sodium (136-148) mmol/L Potassium (3.5-5.1) mmol/L Chloride (98-107) mmol/L Carbon Dioxide (21.0-32.0) mmol/L BUN (7.0-18.0) mg/dL Creatinine (0.8-1.3) mg/dL Est Cr Clr Drug Dosing mL/min Estimated GFR (MDRD) ml/min Glucose (74-106) mg/dL POC Glucose 72 (70-99) mg/dL Calcium (8.5-10.1) mg/dL Magnesium 2.3 (1.8-2.4) mg/dL Total Bilirubin (0.2-1.0) mg/dL AST (15-37) IU/L ALT (14-63) IU/L Alkaline Phosphatase (46-116) U/L Total Protein (6.4-8.2) g/dL Albumin (3.4-5.0) g/dL Globulin (2.6-4.0) g/dL Albumin/Globulin Ratio (0.9-1.6) Salicylates (0-20) mg/dL Urine Opiates Screen NEGATIVE (NEGATIVE) Ur Oxycodone Screen NEGATIVE (NEGATIVE) Urine Methadone Screen NEGATIVE (NEGATIVE) Acetaminophen ug/mL Ur Barbiturates Screen NEGATIVE (NEGATIVE) Ur Phencyclidine Scrn NEGATIVE (NEGATIVE) Ur Amphetamine Screen NEGATIVE (NEGATIVE) U Methamphetamines Scrn NEGATIVE (NEGATIVE) U Benzodiazepines Scrn NEGATIVE (NEGATIVE) U Cocaine Metab Screen NEGATIVE (NEGATIVE) U Marijuana (THC) Screen NEGATIVE (NEGATIVE) Ethyl Alcohol mg/dL SARS-CoV-2 RNA (GARRICK) (NEGATIVE) 11/07/20 11/07/20 Range/Units 02:50 03:55 WBC (4.0-11.0) K/uL RBC (4.50-5.90) M/uL Hgb (13.0-17.0) g/dL Hct (38.0-50.0) % MCV (80.0-98.0) fL MCH (27.0-32.0) pg MCHC (31.0-37.0) g/dL RDW Std Deviation (28.0-62.0) fl RDW Coeff of Myesha (11.0-15.0) % Plt Count (150-400) K/uL MPV (7.40-12.00) fL Neut % (Auto) (48.0-80.0) % Lymph % (Auto) (16.0-40.0) % Lawrence % (Auto) (0.0-15.0) % Eos % (Auto) (0.0-7.0) % Baso % (Auto) (0.0-1.5) % Neut # (Auto) (1.4-5.7) K/uL Lymph # (Auto) (0.6-2.4) K/uL Lawrence # (Auto) (0.0-0.8) K/uL Eos # (Auto) (0.0-0.7) K/uL Baso # (Auto) (0.0-0.1) K/uL Nucleated RBC % /100WBC Nucleated RBCs # K/uL Sodium (136-148) mmol/L Potassium (3.5-5.1) mmol/L Chloride (98-107) mmol/L Carbon Dioxide (21.0-32.0) mmol/L BUN (7.0-18.0) mg/dL Creatinine (0.8-1.3) mg/dL Est Cr Clr Drug Dosing mL/min Estimated GFR (MDRD) ml/min Glucose (74-106) mg/dL POC Glucose (70-99) mg/dL Calcium (8.5-10.1) mg/dL Magnesium (1.8-2.4) mg/dL Total Bilirubin (0.2-1.0) mg/dL AST (15-37) IU/L ALT (14-63) IU/L Alkaline Phosphatase (46-116) U/L Total Protein (6.4-8.2) g/dL Albumin (3.4-5.0) g/dL Globulin (2.6-4.0) g/dL Albumin/Globulin Ratio (0.9-1.6) Salicylates 3.6 (0-20) mg/dL Urine Opiates Screen (NEGATIVE) Ur Oxycodone Screen (NEGATIVE) Urine Methadone Screen (NEGATIVE) Acetaminophen ug/mL Ur Barbiturates Screen (NEGATIVE) Ur Phencyclidine Scrn (NEGATIVE) Ur Amphetamine Screen (NEGATIVE) U Methamphetamines Scrn (NEGATIVE) U Benzodiazepines Scrn (NEGATIVE) U Cocaine Metab Screen (NEGATIVE) U Marijuana (THC) Screen (NEGATIVE) Ethyl Alcohol mg/dL SARS-CoV-2 RNA (GARRICK) NEGATIVE (NEGATIVE) Meds: Medications Discontinued Medications Generic Name Dose Route Start Last Admin Trade Name Freq PRN Reason Stop Dose Admin Albuterol 8 gm 11/07/20 06:00 Albuterol Hfa 18 Gm Inhaler INH QID RISHABH Albuterol 8 gm 11/07/20 03:45 11/07/20 12:28 Albuterol Hfa 18 Gm Inhaler INH 8 gm Q2H PRN Administration Shortness of Breath Albuterol Confirm 11/07/20 03:43 11/07/20 03:48 Albuterol 8 Gm Inhaler Administered 11/07/20 03:44 2 puff Dose Administration 8 gm INH .STK-MED ONE Diphenhydramine HCl 50 mg 11/07/20 05:00 11/07/20 05:10 Diphenhydramine 50 Mg/Ml Sdv IVPUSH 11/07/20 05:01 50 mg ONETIME ONE Administration Sodium Chloride 1,000 mls @ 999 mls/hr 11/06/20 23:44 11/07/20 00:24 Normal Saline IV 11/07/20 00:44 999 mls/hr .Bolus ONE Administration Lorazepam 2 mg 11/07/20 05:00 11/07/20 05:10 Lorazepam 2 Mg/Ml Sdv IVPUSH 11/07/20 05:01 2 mg ONETIME ONE Administration Nicotine 21 mg 11/07/20 05:00 11/07/20 05:10 Nicotine 21 Mg/24 Hr Patch TRDERM 11/07/20 05:01 21 mg ONETIME ONE Administration Sodium Chloride 10 ml 11/06/20 22:45 11/07/20 00:24 Sodium Chloride 0.9% 10 Ml Syringe FLUSH 10 ml ASDIRECTED PRN Administration Keep Vein Open Sodium Chloride 2.5 ml 11/06/20 22:45 11/07/20 00:24 Sodium Chloride 0.9% 2.5 Ml Syringe FLUSH 2.5 ml ASDIRECTED PRN Administration Keep Vein Open Departure - Departure Time of Disposition: 12:54 Disposition: DC/Tfer to Psych Hosp/Unit 65 Condition: Good Clinical Impression: Depressive disorder - Discharge Information Referrals: Salvatore Jonh MD [Primary Care Provider] - Forms: ED Department Discharge Sepsis Event Note (ED) - Focused Exam Vital Signs: Vital Signs Temp Pulse Resp BP Pulse Ox 11/07/20 12:50 36.9 C 107 H 20 139/83 97 11/07/20 12:20 36.6 C 95 20 149/84 H 99 11/07/20 11:00 96 16 157/76 H 98 11/07/20 10:00 101 H 18 144/90 H 99 11/07/20 09:00 91 20 125/83 99 11/07/20 08:00 100 20 133/79 98 - My Orders Last 24 Hours: My Active Orders 11/06/20 22:45 Saline Lock Insert [OM.PC] Stat - Assessment/Plan Last 24 Hours: My Active Orders 11/06/20 22:45 Saline Lock Insert [OM.PC] Stat
[2020-11-06] MEDS ORDERED: Sodium Chloride 0.9% 1,000 ML IV ONE (23:44)
[2020-11-06 23:55] LABS: BLOOD UREA NITROGEN,BUN 7 mg/dL (7.0-18.0); CARBON DIOXIDE,CO2 30.1 mmol/L (21.0-32.0); CHLORIDE,CL 101 mmol/L (98-107); GLUCOSE RANDOM 78 mg/dL (74-106); POTASSIUM,K 3.6 mmol/L (3.5-5.1); SODIUM,NA 142 mmol/L (136-148)
[2020-11-07] MEDS ORDERED: Albuterol 8 GM Inhaler INH ONE (03:43)
[2020-11-07] MEDS: Albuterol HFA 18 Gm Inhaler INH PRN ×2 (03:46→12:28)
[2020-11-07] MEDS ORDERED: LORazepam 2 MG/ML SDV IVPUSH ONE (05:00)
[2020-11-07] MEDS ORDERED: Nicotine 21 MG/24 Hr Patch TRDERM ONE (05:00)
[2020-11-07] MEDS ORDERED: diphenhydrAMINE 50 MG/ML SDV IVPUSH ONE (05:00)
[2020-11-07] MEDS ORDERED: Albuterol HFA 18 Gm Inhaler INH SCH (06:00)
== END 2020-11-07 12:54 ==
LOC: MW.ED 22:27
DX: F32.9 Major depressive disorder, single episode, unspecified (principal); Z20.822 Contact with and (suspected) exposure to COVID-19
CPT/HCPCS: 36415; 80053; 80143; 80179; 80305; 80307; 82947; 83735; 85025; 87635; 93005; 96374; 96375; 99285; A9270; J1200; J2060; J7030; 93010; 99284; J3535-GY; U0002

== ENCOUNTER 2020-11-25 04:39 | Emergency (ER) | payer BC ==
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
== END 2020-11-25 05:07 ==
LOC: MW.ED 04:39
DX: F10.129 Alcohol abuse with intoxication, unspecified (principal); Z79.899 Other long term (current) drug therapy
CPT/HCPCS: 99283

== ENCOUNTER 2024-07-25 12:36 | Emergency (ER) | payer SELFPAY ==
[2024-07-25] MEDS: Acetaminophen 500 MG Tab PO ONE (14:10)
[2024-07-25] MEDS: Ibuprofen 800 MG Tab PO ONE (14:10)
[2024-07-25] MEDS: Lidocaine 2% Viscous Solution 15 ML UD PO ONE (14:11)
== END 2024-07-25 15:11 | disposition home or self-care (01) ==
LOC: MW.ED 12:36
DX: J02.0 Streptococcal pharyngitis (principal); Z79.899 Other long term (current) drug therapy; Z75.8 Other problems related to medical facilities and other health care
CPT/HCPCS: 87428; 87651; 96374; 99283; A9270; J1100